=== PATIENT | female | born 1945 | race Caucasian/White ===

== ENCOUNTER 2017-02-25 17:17 | Inpatient (IN) | payer OTHER ==
[~2017-02-25] VITALS: Ht 160 cm; Wt 70.8 kg
[2017-02-25 18:53] LABS: BASOPHIL % 0.4 % (0-2); PLATELET COUNT 194 x10^3mcL (130-400); RED CELL DISTRIBUTION WIDTH 14.1 % (11.5-14.5)
[2017-02-25 19:16] LABS: CALCIUM 8.8 mg/dL (8.5-10.1); CHLORIDE SERUM 104 mmol/L (98-107); GLUCOSE SERUM 187 mg/dL (74-106); SODIUM SERUM 142 mmol/L (136-145)
[2017-02-25 19:21] LABS: ALBUMIN 3.5 g/dL (3.4-5.0); ALKALINE PHOSPHATASE 65 U/L (46-116); ALT/SGPT 14 U/L (14-59); AMYLASE 64 U/L (25-115); AST/SGOT 7 U/L (15-37); BILIRUBIN TOTAL 0.2 mg/dL (0.20-1.00); CHOLESTEROL 197 mg/dL (<200); LIPASE 177 IU/L (73-393); MAGNESIUM 1.9 mg/dL (1.8-2.4); TOTAL PROTEIN, SERUM 7.1 g/dL (6.4-8.2)
[2017-02-25 19:22] LABS: HDL CHOLESTEROL 70 mg/dL (40-60)
[2017-02-25] MEDS ORDERED: JANUVIA100 M1 PO (21:06)
[2017-02-25] MEDS ORDERED: ACT15 PO (21:06)
[2017-02-25] MEDS ORDERED: LOSARTAN POTASS25 M1 (21:07)
[2017-02-25] MEDS ORDERED: METFORMIN HYD1000 M2 PO (21:07)
[2017-02-25] MEDS ORDERED: SYNTHROID0.075 MG PO (21:08)
[2017-02-25 21:48] LABS: T3 TOTAL 1.02 ng/mL
[2017-02-25 21:49] VITALS: BP 162/84
[2017-02-25 21:50] LABS: FREE T4 1.33 ng/dL (0.76-1.46); FREE THYROXINE INDEX 4.8 ug/dL (1.4-4.5); T4(THYROXINE) 13.7 ug/dL (4.7-13.3)
[2017-02-25 22:01] LABS: PHOSPHOROUS 2.9 mg/dL (2.5-4.9)
[2017-02-25 22:04] LABS: CHOLESTEROL/HDL RATIO 2.8
[2017-02-25 23:53] LABS: microscopic required? NO
[2017-02-26 00:17] LABS: UA SPECIFIC GRAVITY 1.015 (1.005-1.035); urine erythrocyte NEGATIVE (NEGATIVE)
[2017-02-26] MEDS ORDERED: MICROZIDE12.5 MG PO (00:21)
[2017-02-26 00:46] LABS: AMPHETAMINE QUAL UR NONE DETECTED (NEG <=1000)
[2017-02-26 04:04] LABS: RED BLOOD CELLS 3.78 M/mm3 (4.10-5.10)
[2017-02-26 05:47] VITALS: BP 133/58
[2017-02-26 06:02] LABS: IRON 46 ug/dL (50-170); TOTAL IRON BINDING CAPACITY 247 ug/dL (250-450)
[2017-02-26 09:55] VITALS: BP 145/74
[2017-02-26 13:25] VITALS: BP 146/80
[2017-02-26 14:02] VITALS: BP 146/80
[2017-02-26 16:43] VITALS: BP 144/66
[2017-02-26 21:14] VITALS: BP 118/56
[2017-02-27 05:05] VITALS: BP 141/65
[2017-02-27 07:33] LABS: BASOPHIL % 0.3 % (0-2); PLATELET COUNT 179 x10^3mcL (130-400); RED CELL DISTRIBUTION WIDTH 14.2 % (11.5-14.5)
[2017-02-27 07:51] LABS: CALCIUM 8.7 mg/dL (8.5-10.1); CARBON DIOXIDE 27.6 mmol/L (21-32); CHLORIDE SERUM 108 mmol/L (98-107); CREATININE SERUM 0.7 mg/dL (0.6-1.0); GLUCOSE SERUM 103 mg/dL (74-106); MAGNESIUM 1.8 mg/dL (1.8-2.4); POTASSIUM SERUM 3.8 mmol/L (3.5-5.1); SODIUM SERUM 144 mmol/L (136-145)
[2017-02-27 10:33] VITALS: BP 104/59
[2017-02-27] MEDS ORDERED: APAP/HYDROCODON1 T13 PO (14:45)
[2017-02-27 15:18] VITALS: BP 104/59
== END 2017-02-27 16:33 | disposition home or self-care (01) | DRG 512 ==
LOC: ED 17:17 → DU 20:43
PROVIDERS: Emergency Medicine; Neuromusculoskeletal Medicine, Sports Medicine; Student in an Organized Health Care Education/Training Program
PROC: 0HQ1XZZ Repair Face Skin, External Approach (ICD-10-PCS; 2017-02-25)
PROC: 0PSJ34Z Reposition Left Radius with Internal Fixation Device, Percutaneous Approach (ICD-10-PCS; principal; 2017-02-26 11:00)
DX: S52.512A Displaced fracture of left radial styloid process, initial encounter for closed fracture (principal); S01.81XA Laceration without foreign body of other part of head, initial encounter; S52.612A Displaced fracture of left ulna styloid process, initial encounter for closed fracture; M47.892 Other spondylosis, cervical region; S80.02XA Contusion of left knee, initial encounter; I10 Essential (primary) hypertension; E03.9 Hypothyroidism, unspecified; W18.39XA Other fall on same level, initial encounter; Y93.89 Activity, other specified; Y92.015 Private garage of single-family (private) house as the place of occurrence of the external cause; I45.10 Unspecified right bundle-branch block; E11.51 Type 2 diabetes mellitus with diabetic peripheral angiopathy without gangrene; E11.319 Type 2 diabetes mellitus with unspecified diabetic retinopathy without macular edema; E11.65 Type 2 diabetes mellitus with hyperglycemia; D64.9 Anemia, unspecified
CPT/HCPCS: 82962; 83880; 84439; 90715; 97530-GP; A4570; C1713; J0690; J1170; J2001; J2250; J2270; J2405; J2704; J3010; J3490; J7030; J7040; J7042; Q0092